=== PATIENT | male | born 1975 | race Caucasian/White ===

== ENCOUNTER 2017-08-16 14:28 | Emergency (ER) | payer MEDICAID ==
[2017-08-16 14:37] VITALS: RESP 18; TEMP 98.2
--- NOTE | 2017-08-16 14:40 | CPEKG ---
Heart Rate: 72 RR Interval: 833 P-R Interval: 172 QRSD Interval: 98 QT Interval: 408 QTC Interval: 447 P Morgan: 49 QRS Morgan: 45 T Wave Morgan: 19 EKG Severity - NORMAL ECG - EKG Impression: SINUS RHYTHM Preliminary Awaiting MD Review
[2017-08-16] MEDS ORDERED: NS 1,000 ML IV ONE (14:52)
[2017-08-16] MEDS ORDERED: KETOROLAC 15 MG/1 ML SDV IVP ONE (14:53)
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
[2017-08-16 14:56] LABS: % IMMATURE GRANULYOCYTES 0.3 % (0.0-1.1); ABSOLUTE IMMATURE GRANULOCYTES 0.03 10^3/uL (0.00-0.10); ADD DIFF? NO; ADD MORPH? NO; ADD SCAN? NO; ATYPICAL LYMPHOCYTE FLAG 10 (0-99); FRAGMENT RBC FLAG 0 (0-99); HEMATOCRIT 46.9 % (40.0-51.0); HEMOGLOBIN 15.5 g/dL (13.7-17.5); LEFT SHIFT FLG 0 (0-99); LIPEMIA HEMOLYSIS FLAG 80 (0-99); MEAN CELL HEMOGLOBIN 30.8 pg (27.9-34.1); MEAN CELL VOLUME 93.1 fL (81.5-99.8); MEAN PLATELET VOLUME 8.9 fL (8.7-11.7); PLATELET CLUMPS FLAG 0 (0-99); PLATELET COUNT 530 10^3/uL (150-400); RED BLOOD CELL COUNT 5.04 10^6/uL (4.40-6.38); RED CELL DISTRIBUTION WIDTH 13.6 % (11.5-15.2)
[2017-08-16 15:05] LABS: ALANINE AMINOTRANSFERASE 54 IU/L (21-72); ALBUMIN 3.8 g/dL (3.5-5.0); ALKALINE PHOSPHATASE 68 IU/L (38-126); ANION GAP 9 mEq/L (8-16); ASPARTATE AMINOTRANSFERASE 22 IU/L (17-59); BILIRUBIN,TOTAL 0.5 mg/dL (0.1-1.4); BILIRUBIN-CONJUGATED 0.5 mg/dL (0.0-0.5); CALCIUM 9.2 mg/dL (8.5-10.4); CARBON DIOXIDE 27 mEq/l (22-31); CHLORIDE 105 mEq/L (97-110); CREATININE 0.7 mg/dL (0.7-1.3); GLOMERULAR FILTRATION RATE > 60; GLUCOSE 112 mg/dL (70-100); POTASSIUM 4.2 mEq/L (3.5-5.2); SODIUM 141 mEq/L (134-144); TOTAL PROTEIN 6.2 g/dL (6.3-8.2)
[2017-08-16 15:16] LABS: TROPONIN I 0.026 ng/mL (0.000-0.034)
[2017-08-16 19:13] VITALS: BP 122/83; PULSE 72; O2SAT 97
== END 2017-08-16 16:09 | disposition home or self-care (01) ==
LOC: CED 14:28
DX: R07.2 Precordial pain (principal); F17.200 Nicotine dependence, unspecified, uncomplicated; E86.9 Volume depletion, unspecified
CPT/HCPCS: 71020-PO; 80048-PO; 80076-PO; 83690-PO; 84484-PO; 85025-PO; 85378-PO; 96374; J1885

== ENCOUNTER 2017-09-06 13:44 | Emergency (ER) | payer MEDICAID ==
--- NOTE | 2017-09-06 14:05 | CPEKG ---
Heart Rate: 76 RR Interval: 789 P-R Interval: 164 QRSD Interval: 96 QT Interval: 380 QTC Interval: 428 P Daphne: 51 QRS Daphne: 56 T Wave Daphne: 33 EKG Severity - NORMAL ECG - EKG Impression: SINUS RHYTHM Electronically Signed By: Jake Welch 06-Sep-2017 15:01:33
[2017-09-06 14:08] LABS: % IMMATURE GRANULYOCYTES 0.2 % (0.0-1.1); ABSOLUTE IMMATURE GRANULOCYTES 0.01 10^3/uL (0.00-0.10); ADD DIFF? NO; ADD MORPH? NO; ADD SCAN? NO; ATYPICAL LYMPHOCYTE FLAG 10 (0-99); FRAGMENT RBC FLAG 0 (0-99); HEMATOCRIT 45.4 % (40.0-51.0); HEMOGLOBIN 15.4 g/dL (13.7-17.5); LEFT SHIFT FLG 0 (0-99); LIPEMIA HEMOLYSIS FLAG 90 (0-99); MEAN CELL HEMOGLOBIN 30.9 pg (27.9-34.1); MEAN CELL HEMOGLOBIN CONCENTR. 33.9 g/dL (32.4-36.7); MEAN PLATELET VOLUME 8.6 fL (8.7-11.7); PLATELET CLUMPS FLAG 0 (0-99); PLATELET COUNT 437 10^3/uL (150-400); RED BLOOD CELL COUNT 4.99 10^6/uL (4.40-6.38); RED CELL DISTRIBUTION WIDTH 13.1 % (11.5-15.2)
[2017-09-06 14:16] VITALS: TEMP 98.2
[2017-09-06] MEDS ORDERED: KETOROLAC 30 MG/1 ML SDV IVP ONE (14:22)
[2017-09-06 14:25] LABS: ANION GAP 10 mEq/L (8-16); CALCIUM 9.3 mg/dL (8.5-10.4); CARBON DIOXIDE 24 mEq/l (22-31); CHLORIDE 106 mEq/L (97-110); CREATININE 0.8 mg/dL (0.7-1.3); GLOMERULAR FILTRATION RATE > 60; GLUCOSE 86 mg/dL (70-100); POTASSIUM 4.3 mEq/L (3.5-5.2); SODIUM 140 mEq/L (134-144)
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
[2017-09-06 14:38] LABS: TROPONIN I < 0.012 ng/mL (0.000-0.034)
[2017-09-06 15:20] VITALS: BP 124/68; PULSE 72; RESP 14; O2SAT 95
== END 2017-09-06 15:14 | disposition home or self-care (01) ==
LOC: CED 13:44
DX: S22.20XD Unspecified fracture of sternum, subsequent encounter for fracture with routine healing (principal); F17.200 Nicotine dependence, unspecified, uncomplicated; V18.2XXD Unspecified pedal cyclist injured in noncollision transport accident in nontraffic accident, subsequent encounter
CPT/HCPCS: 71020-PO; 80048-PO; 84484-PO; 85025-PO; 96374; J1885